=== PATIENT | female | born 1960 | race Caucasian/White ===

== ENCOUNTER 2018-06-18 11:02 | Day surgery (SDC) | payer OTHER ==
[~2018-06-18 11:02] MED LIST: ACETAMINOPHEN 1,000 MG/100 ML RTUPB IV ONE; BUPIVACAINE HCL 0.25 % INJ/PF (2.5 MG/1 ML) 30 ML VIAL ONE; CEFAZOLIN 2 GM/D5W RTU 2 GM/50 ML RTUPB IV PRN; DEXAMETHASONE SOD PHOSPHATE INJ 4 MG/1 ML VIAL ONE; FENTANYL CITRATE INJ/PF 100 MCG/2 ML AMPUL ONE; MIDAZOLAM 2 MG/2 ML INJ ONE; ONDANSETRON HCL INJ/PF 4 MG/2 ML SDV ONE; PROPOFOL INJ 200 MG/20 ML VIAL IV ONE; SUCCINYLCHOLINE CHLORIDE INJ 200 MG/10 ML VIAL ONE
[2018-06-18] MEDS ORDERED: CEFAZOLIN 2 GM/D5W RTU 2 GM/50 ML RTUPB IV ONE (11:33)
[2018-06-18 11:57] LABS: HEMATOCRIT 44.3 % (36.0-47.0); MEAN CORPUSCULAR HEMOGLOBIN 28.5 pg (27.0-33.4); MEAN CORPUSCULAR HGB CONC 33.8 g/dL (32.0-36.0); MEAN CORPUSCULAR VOLUME 84 fl (80-97); PLATELET COUNT 335 10^3/uL (150-450); RED BLOOD COUNT 5.25 10^6/uL (3.72-5.28); RED CELL DISTRIBUTION WIDTH 13.5 % (11.5-14.0); WHITE BLOOD COUNT 8.4 10^3/uL (4.0-10.5)
[2018-06-18 12:14] LABS: ANION GAP 14 (5-19); BLOOD UREA NITROGEN 13 mg/dL (7-20); CALCIUM 9.6 mg/dL (8.4-10.2); CARBON DIOXIDE 18 mmol/L (22-30); CHLORIDE 112 mmol/L (98-107); GLUCOSE 154 mg/dL (75-110); POTASSIUM 4.2 mmol/L (3.6-5.0)
[2018-06-18] MEDS ORDERED: MEPERIDINE HCL/PF INJ 25 MG/1 ML DISP.SYRIN IV PRN (13:36)
[2018-06-18] MEDS ORDERED: DIPHENHYDRAMINE HCL 50 MG/ML VIAL IV PRN (13:36)
[2018-06-18] MEDS ORDERED: FENTANYL CITRATE INJ/PF 100 MCG/2 ML AMPUL IV PRN ×3 (13:36)
[2018-06-18] MEDS ORDERED: MORPHINE SULFATE 10 MG/ML INJ IV PRN (13:36)
[2018-06-18] MEDS ORDERED: PROMETHAZINE HCL INJ 25 MG/1 ML VIAL IV PRN ×2 (13:36)
[2018-06-18] MEDS ORDERED: ONDANSETRON HCL INJ/PF 4 MG/2 ML SDV IV PRN ×2 (13:36→15:01)
[2018-06-18] MEDS ORDERED: FENTANYL CITRATE INJ/PF 100 MCG/2 ML AMPUL IV ONE ×2 (14:30→14:35)
--- NOTE | 2018-06-18 14:33 | RADIOLOGY REPORT (SQ) ---
EXAM DESCRIPTION: WRIST RIGHT 2 VIEWS; NO CHG FLUORO COMPLETED DATE/TIME: 06/18/2018 2:22 pm REASON FOR STUDY: ORIF RIGHT WRIST S52.531A COLLES' FRACTURE OF RIGHT RADIUS, INIT FOR CLOS FX COMPARISON: None. FLUOROSCOPY TIME: 52 seconds Spot images saved to PACS. TECHNIQUE: Intra-operative images acquired during surgical procedure to evaluate progress. NUMBER OF IMAGES: 4 LIMITATIONS: None. FINDINGS: Fluoroscopy was provided for intraoperative procedure. Please refer to the operative repo rt for further discussion. IMPRESSION: IMAGE(S) OBTAINED DURING PROCEDURE. COMMENT: Quality ID [id number]: Final reports for procedures using fluoroscopy that document radiation exp osure indices, or exposure time and number of fluorographic images (if radiation exposure indices are not available) Please consult full operative report of the attending physician for description of the procedure. TECHNICAL DOCUMENTATION: JOB ID: [id number] [employer]- All Rights Reserved Reading location - IP/workstation name: [email or web address]
--- NOTE | 2018-06-18 14:34 | RADIOLOGY REPORT (SQ) ---
EXAM DESCRIPTION: WRIST RIGHT 2 VIEWS; NO CHG FLUORO COMPLETED DATE/TIME: 06/18/2018 2:22 pm REASON FOR STUDY: ORIF RIGHT WRIST S52.531A COLLES' FRACTURE OF RIGHT RADIUS, INIT FOR CLOS FX COMPARISON: None. FLUOROSCOPY TIME: 52 seconds Spot images saved to PACS. TECHNIQUE: Intra-operative images acquired during surgical procedure to evaluate progress. NUMBER OF IMAGES: 4 LIMITATIONS: None. FINDINGS: Fluoroscopy was provided for intraoperative procedure. Please refer to the operative repo rt for further discussion. IMPRESSION: IMAGE(S) OBTAINED DURING PROCEDURE. COMMENT: Quality ID [id number]: Final reports for procedures using fluoroscopy that document radiation exp osure indices, or exposure time and number of fluorographic images (if radiation exposure indices are not available) Please consult full operative report of the attending physician for description of the procedure. TECHNICAL DOCUMENTATION: JOB ID: [id number] [employer]- All Rights Reserved Reading location - IP/workstation name: [email or web address]
[2018-06-18] MEDS: HYDROMORPHONE HCL INJ/PF 2 MG/ML AMPULE ONE ×2 (14:40→14:45)
[2018-06-18] MEDS ORDERED: FENTANYL CITRATE INJ/PF 100 MCG/2 ML AMPUL ONE (14:50)
[2018-06-18] MEDS ORDERED: HYDROCODONE/ACETAMINOPHEN 5-325 MG TABLET PO PRN (14:58)
--- NOTE | 2018-06-18 15:37 | OPERATIVE REPORT E ---
Operative Report NAME: NOE URBINA : 1960 AGE: 57Y DATE OF SURGERY: 06/18/2018 ROOM: PREOPERATIVE DIAGNOSIS: RIGHT 3-PART INTRAARTICULAR DISTAL RADIUS FRACTURE. POSTOPERATIVE DIAGNOSIS: RIGHT 3-PART INTRAARTICULAR DISTAL RADIUS FRACTURE. OPERATION: 1. OPEN REDUCTION AND INTERNAL FIXATION RIGHT 3-PART INTRAARTICULAR DISTAL RADIUS FRACTURE. 2. BRACHIORADIALIS TENDON LENGTHENING. SURGEON: GEORGE OLVERA M.D. ANESTHESIA: General. ESTIMATED BLOOD LOSS: Minimal. COMPLICATIONS: None. INDICATIONS: The patient is a 57-year-old woman who sustained a fall on her outstretched hand, resulting in a comminuted displaced intraarticular fracture of the right distal radius. PROCEDURE: Following induction of general anesthetic and administration of antibiotics, the patient was positioned supine on the operating room table. Bony prominences were padded. A tourniquet was placed proximally on the right arm but not inflated. The right upper extremity was sterilely prepped with ChloraPrep and draped in standard fashion. The arm was exsanguinated and the tourniquet inflated to 100 mmHg. Volar approach to the distal radius was performed. Sharp incision was performed through skin. Blunt dissection through subcutaneous tissue. Care was taken to identify and protect the radial artery. The SVR fascia was opened volarly and dorsally. Space of Parona opened bluntly. Pronator quadratus taken off of the distal radius in an L-shaped flap. Fracture lines were identified. There was a comminuted 3-part intraarticular fracture. In order to mobilize the fracture fragments, brachioradialis tendon was lengthened in Z-fashion, allowing the fragments to be manipulated. They reduced anatomically into 3.5 loupe magnification and clamped into position. Arthrex volar plate was applied, through which a gliding hole incision was checked on image intensification. Screws were placed just beneath the subcortical bone using the image *------* on lateral position to guide the drilling and placement of the most distal line of screws. They were placed unicortical and locked into position. Proximal row of screws was placed as well. Image intensification confirmed anatomic alignment of the fracture and correct placement of implants. An additional locking screw was placed in the shaft. The wound was copiously irrigated. The brachioradialis repaired [id number] in Z-lengthening fashion. The pronator quadratus was repaired back to its radial margin. This was all done with 3-0 Vicryl suture. Subcutaneous tissue was closed with 3-0 Vicryl. Skin was reapproximated with a 3-0 Monocryl using a subcuticular technique. Steri-Strips were applied. 0.25% Marcaine was injected. A bulky sterile dressing and volar splint were applied. The patient tolerated the procedure well without complications, and brought to the recovery room in stable condition. DICTATING PHYSICIAN: GEORGE OLVERA M.D. [id number] PHY#: [id number] ID: [id number] JOB#: [id number] ACCT: [id number] cc:GEORGE OLVERA M.D. >
[2018-06-18] MEDS ORDERED: HYDROCODONE/ACETAMINOPHEN 5-325 MG TABLET ONE (15:47)
[2018-06-18 16:46] VITALS: BP 177/92
== END 2018-06-18 17:00 | disposition home or self-care (01) ==
LOC: OROUT 11:02
PROVIDERS: ATTEND Orthopaedic Surgery
DX: S52.531A Colles' fracture of right radius, initial encounter for closed fracture (principal); W19.XXXA Unspecified fall, initial encounter; E11.9 Type 2 diabetes mellitus without complications; E03.9 Hypothyroidism, unspecified; Z79.899 Other long term (current) drug therapy
CPT/HCPCS: 25609; 25280; 36415; 85027; 80048; 73100; J2250; J1100; J3010; J1170; J0330; J2405; J2704; J0690; J0131; 01830